=== PATIENT | male | born 1965 ===

== ENCOUNTER → 2016-09-22 | Outpatient (CLI) | payer BC | END | disposition home or self-care (01) | LOC: GMAB 10:31 | PROVIDERS: ATTEND Family Medicine | DX: Z00.00 Encounter for general adult medical examination without abnormal findings (principal); E07.9 Disorder of thyroid, unspecified; Z12.5 Encounter for screening for malignant neoplasm of prostate ==

== ENCOUNTER → 2017-02-09 | Outpatient (CLI) | payer SELFPAY ==
--- NOTE | 2017-02-10 08:46 | MRI ---
EXAM DESCRIPTION: Lumbar Spine w/o Contrast CLINICAL HISTORY: LUMBAR SPONDYLOSIS left hip pain and numbness COMPARISON: None Available. TECHNIQUE: Multi plantar multi sequence non contrast imaging. FINDINGS: There is good alignment of the lumbar spine. There is no vertebral pathology. No extra spinous normality is detected. L1-2: Unremarkable. L2-3: Unremarkable. L3-4: Unremarkable. L4-5: The disc is desiccated. Loss of disc height is observed. A 4 mm left-sided disc protrusion is detected. No neural foraminal disease of significance is detected. L5-S1: Unremarkable. IMPRESSION: A left-sided 4 mm disc protrusion is detected at the L4-5 level. Electronically signed by: Juliocesar Tracy MD 02/10/2017 8:45 AM CDT
== END | disposition home or self-care (01) ==
LOC: MRI 09:09
PROVIDERS: ATTEND Physician Assistant
DX: M47.896 Other spondylosis, lumbar region (principal)

== ENCOUNTER → 2018-01-06 | Outpatient (CLI) | payer BC | LOC: GMAB 10:39 | PROVIDERS: ATTEND Family Medicine | DX: Z00.01 Encounter for general adult medical examination with abnormal findings (principal); Z12.5 Encounter for screening for malignant neoplasm of prostate ==

== ENCOUNTER → 2018-08-12 | Outpatient (CLI) | payer BC ==
--- NOTE | 2018-08-13 10:51 | MRI ---
EXAM DESCRIPTION: Lumbar Spine w/o Contrast : Magnetic Resonance Imaging. CLINICAL HISTORY: DISC HERNIATION COMPARISON: MRI lumbar spine noncontrast 03/11/2017. TECHNIQUE: Multiplanar, multiple standard sequences, non contrast MRI, lumbar spine. FINDINGS: L5-S1: Minimal disc desiccation. Minimal narrowing of the posterior disc space. Mild canal narrowing right more than left. Tiny bulge of the disc into the left foramen. Posterior elements unremarkable. L4-5: Moderate disc desiccation. Moderate disc space loss more to the right than the left. Anterior disc bulge and spurs. Grade 1 retrolisthesis 3 mm. Left paracentral 7 mm disc protrusion with 7.5 mm inferior extrusion. The disc is effacing the left subarticular recess and displacing the descending left L5 nerve. Mild to moderate left paracentral canal stenosis. This has progressed since the prior study. Mild bilateral foraminal narrowing. Mild flavum ligament hypertrophy. L3-4: Normal signal in the disc with disc space preserved. No significant bulging. Mild flavum ligament hypertrophy and mild canal narrowing. Bilateral mild foraminal narrowing. L2-3: Minimal disc desiccation and disc space loss. Anterior bulging and spurs. Mild flavum ligament hypertrophy. Mild canal narrowing. Bilateral foramina are patent. Circumscribed hyperintense T1 and T2 weighted objects in the L2 vertebral body L1-2: Disc desiccation and minimal disc space loss. Minimal anterior bulging. No posterior bulging. Minimal flavum ligament hypertrophy. Canal and foramina are patent. Conus terminates at L1. T12-L1: Normal signal in the disc and disc space preserved. Minimal left paracentral 3 mm disc bulge. Schmorl's node inferior T12 endplate. Posterior elements unremarkable. Canal and foramina are patent. Reduced normal lordosis. Paravertebral soft tissues negative.. Otherwise normal marrow signal in the remaining vertebral bodies and the posterior elements. Vertebral bodies are not compressed at any level. IMPRESSION: 1. L4-5 disc space loss, disc desiccation, grade 1 retrolisthesis. Left posterior paracentral protrusion and inferior extrusion with left paracentral moderate canal stenosis. Left subarticular recess stenosis and impingement of the descending left L5 nerve. Progressed since the prior study. 2. L2-3 disc desiccation and disc space loss no canal or foraminal stenosis. Stable disc and hemangiomas in the L2 vertebral body. 3. L1-2 disc desiccation and disc space loss. T12-L1 Left paracentral posterior disc bulge has progressed since the prior study. Electronically signed by: Srikanth Freitas MD 08/13/2018 10:50 AM [facility]
== END ==
LOC: MRI 13:04
PROVIDERS: ATTEND Orthopaedic Surgery Orthopaedic Surgery of the Spine
DX: M99.73 Connective tissue and disc stenosis of intervertebral foramina of lumbar region (principal); M99.53 Intervertebral disc stenosis of neural canal of lumbar region; M51.26 Other intervertebral disc displacement, lumbar region; M47.26 Other spondylosis with radiculopathy, lumbar region

== ENCOUNTER → 2018-12-27 | Outpatient (CLI) | payer BC | LOC: GMAE 10:25 | PROVIDERS: ATTEND Family Medicine | DX: Z00.01 Encounter for general adult medical examination with abnormal findings (principal); Z12.5 Encounter for screening for malignant neoplasm of prostate ==